=== PATIENT | female | born 1985 | race Hispanic/Latino ===

== ENCOUNTER 2018-10-21 11:28 | Emergency (ER) | payer SELFPAY ==
[2018-10-21] MEDS ORDERED: Proparacaine 0.5% Opth 15 ML BOT ONE (12:04)
[2018-10-21] MEDS ORDERED: Fluorescein Opthalmic Strip ONE (12:04)
== END 2018-10-21 12:50 | disposition home or self-care (01) ==
LOC: ERS 11:28
DX: H10.212 Acute toxic conjunctivitis, left eye (principal); I10 Essential (primary) hypertension
CPT/HCPCS: 99283

== ENCOUNTER 2018-11-19 12:46 | Emergency (ER) | payer SELFPAY ==
[2018-11-19] MEDS ORDERED: Morphine 2 MG/ML SYRINGE ONE ×2 (14:01→15:39)
[2018-11-19] MEDS ORDERED: Ondansetron PF 4 MG/2 ML Vial ONE (14:01)
[2018-11-19 14:17] LABS: #Basophils 0.1 thou/uL (0.0-0.2); #Eosinphils 0.1 thou/uL (0.0-0.7); #Lymphocytes 1.8 thou/uL (1.20-3.40); #Monocytes 0.9 thou/uL (0.11-0.59); #Neutrophils 10.9 thou/uL (1.40-6.50); %Basophils 0.4 % (0.0-1.0); %Eosinophils 0.8 % (0.0-10.0); %Lymphocytes 12.9 % (21.0-51.0); %Monocytes 6.5 % (0.0-10.0); %Neutrophils 79.4 % (42.0-75.0); Hemoglobin 14.4 g/dL (12.0-16.0); Mean Corpuscular HGB CONC 34.2 g/dL (32.0-36.0); Mean Corpuscular Hemoglobin 30.4 pg (27.0-31.0); Mean Corpuscular Volume 89.1 fL (78.0-98.0); Mean Platelet Volume 9.5 fL (7.4-10.4); Platelet Count 235 thou/uL (130-400); RBC Distribution Width 11.9 % (11.5-14.5); Red Blood Cell (RBC) Count 4.74 mill/uL (4.20-5.40); White Blood Cell (WBC) Count 13.7 thou/uL (4.8-10.8)
[2018-11-19 14:37] LABS: Bilirubin Moderate (Negative); Blood, Urine Large (Negative); Clarity Cloudy (Clear); Glucose, Urine (Dipstick) >=1000 mg/dL (Negative); Leukocyte Negative (Negative); Nitrite Positive (Negative); Protein, Urine (Dipstick) > or equal to 300 mg/dL (Neg-Trace)
[2018-11-19 14:43] LABS: Bacteria/HPF 2+ HPF (None Seen); RBC/HPF Greater than 50 HPF (0-3)
--- NOTE | 2018-11-19 16:24 | ULT ---
PELVIC ULTRASOUND: 11/19/18 Transabdominal and endovaginal ultrasound of the pelvis performed. INDICATIONS: Vaginal bleeding. Reported being six week . No comparison. Exam is limited due to body habitus. There is evidence of a gestational sac with in the endometrial c avity. An echogenic focus is identified which may represent a pole. [place]-rump length of this a pparent pole would indicate a six week two day gestation. No fecal cardiac activity could be id entified with Doppler studies. Echogenicity in region of the cervix may represent blood product. Ovaries are not identified. IMPRESSION: There is evidence of a gestational sac within the endometrial cavity. An echogenic focus which may r epresent pole is identified. No evidence of cardiac activity could be obtained. Viability is not confirmed. Recommend close follow-up with serial HCG levels and repeat ultrasound as indicate d. POS: OFF
== END 2018-11-19 16:49 | disposition home or self-care (01) ==
LOC: ERS 12:46
DX: O02.1 Missed abortion (principal); I10 Essential (primary) hypertension
CPT/HCPCS: 36415; 76856; 81003; 81015; 84702; 85025; 86900; 86901; 96374; 96375; 96376; J2270; J2405